=== PATIENT | male | born 1965 | race Caucasian/White ===

== ENCOUNTER 2016-12-19 16:56 | Emergency (ER) | payer OTHER ==
[~2016-12-19] VITALS: Ht 188 cm; Wt 113.4 kg
--- NOTE | ~2016-12-19 | CT4 ---
[facility] A Service of [facility] RADIOLOGY TEXT RESULTS PATIENT: PILAR KEY LOCATION: SED : 65 UNIT #: [id number] AGE: [address]: Yovani Billings MD SEX: M ORDER DR: [id number] [place] [id number] E MR#: [id number] Acc #: [id number] NAME: PILAR KEY : 1965 SEX: M STUDY DATE/TIME: 12/19/2016 18:41 UNIT: SED ROOM: STUDY DESCRIPTION: CT Abd and Pelv Wo Cont Attending Physician: Yovani Billings M.D. Ordering Physician: Can Alcaraz M.D. Primary Care Physician: No Primary Care Physician MEDICAL IMAGING REPORT This report is preliminary unless electronic signature is present. EXAM CT abdomen and pelvis without contrast. HISTORY Right flank and groin pain since yesterday. FINDINGS CT abdomen and pelvis was performed without contrast. This CT exam was performed with one or more of the following radiation dose reduction techniques: automatic exposure control, adjustment of mA and/or kV according to patient size, and iterative reconstruction. CT abdomen. There is a 1 mm nonobstructing stone in the upper pole of the right kidney. No left renal calculi. No hydronephrosis or ureteral dilatation. Very small hiatal hernia. Incidental subcentimeter cyst in the anterior margin of the lateral segment left hepatic lobe. No biliary dilatation. The gallbladder, spleen, pancreas, and adrenal glands are normal. Normal caliber abdominal aorta. No bowel dilatation. CT pelvis. Normal appendix. Mild stranding about the urinary bladder. This could be secondary to edema or inflammation. Suggest correlation with patient's symptoms for possible cystitis. No bladder calculi. No bladder distension. Prostate gland is unremarkable. No free fluid. No bowel dilatation. IMPRESSION 1. Mild stranding about the urinary bladder could be secondary to cystitis. 2. No urinary obstruction. [facility] A Service of [facility] RADIOLOGY TEXT RESULTS PATIENT: PILAR KEY LOCATION: SED : 65 UNIT #: [id number] AGE: [address]: Yovani Billings MD SEX: M ORDER DR: 3. 1 mm nonobstructing stone in the upper pole right kidney. 4. Normal appendix. Dictated by... Shashi Estrada M.D. THIS IS AN ELECTRONICALLY VERIFIED REPORT Shashi Estrada M.D. at 12/20/2016 2:21 PM DFL/radha TD: 12/20/2016 12:36 JOB #: [id number] MEDICAL IMAGING REPORT Page 1 of 1
[2016-12-19 17:18] LABS: URINE SOURCE CLEAN CATCH
[2016-12-19 17:20] LABS: URINE APPEARANCE SL CLOUDY; URINE BILIRUBIN NEG (NEG); URINE BLOOD 1+ (NEG); URINE COLOR YELLOW; URINE GLUCOSE NEG (NORM); URINE KETONE TRACE (NEG); URINE LEUKOCYTE ESTERASE 2+ (NEG); URINE NITRATE POS (NEG); URINE PROTEIN TRACE (NEG); URINE SPECIFIC GRAVITY 1.025 (1.003-1.035)
[2016-12-19 17:29] LABS: MICRO INDICATED? YES
[2016-12-19 17:34] LABS: CULTURE INDICATED? YES; URINE BACTERIA 1+ (NEG); URINE SQUAMOUS EPITHELIAL CELL OCCAS /[HPF]; URINE WBC 50-100 /[HPF] (0-5)
[2016-12-19] MEDS ORDERED: BACTRIM DS TAB1 EACH PO (20:05)
== END 2016-12-19 20:30 | disposition home or self-care (01) ==
LOC: SED 16:56
PROVIDERS: Emergency Medicine
DX: N30.00 Acute cystitis without hematuria (principal); F17.210 Nicotine dependence, cigarettes, uncomplicated; Z79.899 Other long term (current) drug therapy
CPT/HCPCS: 74176; 81003; 87086; 87088; 87186; 96372; 99284; J0696

== ENCOUNTER 2016-12-23 15:14 | Emergency (ER) | payer SELFPAY ==
--- NOTE | ~2016-12-23 | US115 ---
[facility] A Service of [facility] RADIOLOGY TEXT RESULTS PATIENT: PILAR KEY LOCATION: SED : [birth year] UNIT #: [id number] AGE: [address]: Darren Swann MD SEX: M ORDER DR: [id number] [place] [id number] E MR#: [id number] Acc #: [id number] NAME: PILAR KEY : 1965 SEX: M STUDY DATE/TIME: 12/23/2016 15:37 UNIT: SED ROOM: STUDY DESCRIPTION: US Scrotum and Contents Attending Physician: Darren Swann M.D. Ordering Physician: Darren Swann M.D. Primary Care Physician: No Primary Care Physician MEDICAL IMAGING REPORT This report is preliminary unless electronic signature is present. EXAM Scrotal ultrasound with Doppler imaging INDICATION Pain and swelling in the scrotum for a week, no injury. FINDINGS Right testicle is 3.2 x 3.7 x 4.0 cm and has normal flow and normal echotexture. The right epididymis is hypervascular, and there is complex partially cystic and partially solid-appearing material surrounding the right testicle, probable represent complex hydrocele. Left testicle is 1.7 x 2.9 x 4.3 cm and has normal echotexture and normal flow. The left epididymis is normal. IMPRESSION 1. Both testicles are normal. 2. I believe the patient probably has right-sided epididymitis with a complex hydrocele partially surrounding the right testicle. There is septated complex fluid partially surrounding the right testicle. The epididymis is hypervascular. Otherwise, the study is negative. Dictated by... Darrell Joiner M.D. THIS IS AN ELECTRONICALLY VERIFIED REPORT Darrell Joiner M.D. at 12/24/2016 8:37 AM ALIA/kamille TD: 12/23/2016 21:28 JOB #: [id number] [facility] A Service of [facility] RADIOLOGY TEXT RESULTS PATIENT: PILAR KEY [place] [facility] [place] [birth year] UNIT #: [id number] AGE: [address]: Darren Swann MD SEX: M ORDER DR: MEDICAL IMAGING REPORT Page 1 of 1
[~2016-12-23 15:14] MED LIST: BACTRIM DS TAB1 EACH PO
[2016-12-23 16:17] LABS: BASOPHIL# 0.2 X10e3 (0-0.3); BASOPHIL% 1.5 % (0-2.5); EOSINOPHIL# 0.1 X10e3 (0-0.7); HEMATOCRIT 45.7 % (38.0-50.0); HEMOGLOBIN 15.6 gm/dL (13.0-16.0); LYMPHOCYTE# 1.7 X10e3 (1.0-3.5); LYMPHOCYTE% 13.7 % (17.0-45.0); MEAN CELL VOLUME 85.7 FL (83-96); MEAN CORPUSCULAR HEMOGLOBIN 29.3 PG (28-34); MEAN CORPUSCULAR HGB CONC 34.2 g/dL (30-36); MEAN PLATELET VOLUME 7.3 FL (6.5-11.5); MONOCYTE# 0.6 X10e3 (0-1.0); NEUTROPHIL# 9.6 X10e3 (1.5-7.1); NEUTROPHIL% 78.8 % (40-75); PLATELET COUNT 322 X10e3 (140-420); RED BLOOD COUNT 5.33 X10e (3.90-5.60); RED CELL DISTRIBUTION WIDTH 13.8 % (11.0-15.5); WHITE BLOOD COUNT 12.2 X10e3 (4.0-10.5)
[2016-12-23 16:20] LABS: DIFF IND NO
[2016-12-23 16:34] LABS: BUN/CREATININE RATIO 14.44; CALCIUM SERUM 9.1 mg/dL (8.4-10.2); CREATININE SERUM 0.9 mg/dL (0.6-1.4); GLOM FILT RATE Estimated 98.5 mL/min (>60)
== END 2016-12-23 17:42 | disposition home or self-care (01) ==
LOC: SED 15:14
PROVIDERS: Emergency Medicine
DX: N45.1 Epididymitis (principal); N30.00 Acute cystitis without hematuria; F17.200 Nicotine dependence, unspecified, uncomplicated; Z79.899 Other long term (current) drug therapy
CPT/HCPCS: 36415; 76870; 80048; 85025; 96372; 99284; J0696